=== PATIENT | female | born 1985 | race Caucasian/White ===

== ENCOUNTER → 2021-05-10 08:35 | Outpatient (BNVA) | payer OTHER, SELFPAY | PROVIDERS: PCP Nurse Practitioner Gerontology; Visit Provider Psychiatry & Neurology Neurology ==

== ENCOUNTER → 2022-05-31 09:39 | Outpatient (BNVA) | payer OTHER, SELFPAY | PROVIDERS: PCP Nurse Practitioner Gerontology; Visit Provider Psychiatry & Neurology Neurology | DX: M62.838 Other muscle spasm (principal); S24.8XXA Injury of other specified nerves of thorax, initial encounter; F41.9 Anxiety disorder, unspecified; R20.2 Paresthesia of skin ==

== ENCOUNTER 2022-12-04 09:15 | Outpatient (AMB) | payer OTHER, SELFPAY ==
--- NOTE | 2022-12-04 09:18 | MHC.OFFVIS ---
Intake Vital Signs 12/04/22 09:24 Weight 165 lb 8 oz BP 110/72 Blood Pressure Location Rt brachial Position Sitting Pulse 68 Pulse Source Pulse Oximeter Pulse Oximetry (%) 98 Oxygen Delivery Method Room Air Intake Visit Reasons: 6 mnts f/u - LVM Intake Note: F/U parastesia Allergies No Known Allergies Allergy (Verified 12/04/22 09:18) Medication List - Last Reconciled 12/04/22 by Denisa Villarreal MD citalopram 20 mg PO DAILY magnesium oxide 400 mg PO DAILY modafinil 200 mg PO BID norethindrone (contraceptive) 0.35 mg PO DAILY PNV no.170-iron fum-folic acid 27 mg iron- 1 mg 1 tab PO DAILY HPI HPI Comments History of Present Illness Details 37-year-old female with history of right shoulder pain anxiety and skin paresthesia comes for follow-up. she had her son 6 weeks ago- uncomplicated delivery had C section.she wants to get back to PT for her right thoracic nerve palsy . She is on Celexa 20 mg once a day . She is less anxious now. She also has a diagnosis of narcolepsy and is followed up for a doctor's Dr. Cortez at in [place]. [facility] Medical History Muscle spasm Injury of long thoracic nerve Anxiety Narcolepsy delivery delivered Surgical History Status post Family History Maternal Aunt Cancer Mother Cancer Social History Alcohol intake: current Alcohol intake frequency: holidays/special occasions only Patient Tobacco Use Status: Never used Tobacco Physical Exam Vital Signs: Last Vital Signs Pulse 68 12/04/22 09:24 BP 110/72 12/04/22 09:24 Pulse Ox 98 12/04/22 09:24 Oxygen Delivery Method Room Air 12/04/22 09:24 Const General: cooperative, healthy appearing, comfortable, no acute distress and well developed Nutritional Appearance: average body habitus Orientation/consciousness: patient oriented x3 Limitations: no limitations HEENT Head: Yes normal to inspection, Yes normocephalic and Yes atraumatic Neuro General: patient oriented x3, gait normal, tone normal, moves all extremities, No no focal motor deficits and CN's II-XI intact bilaterally Psych Appearance: grossly normal Speech and movement: Normal speech and movement present Affect: normal affect Assessment & Plan Assessment & Plan (1) Muscle spasm: Code(s): M62.838 - Other muscle spasm (2) Injury of long thoracic nerve: Code(s): S24.8XXA - Injury of other specified nerves of thorax, initial encounter (3) Anxiety: Code(s): F41.9 - Anxiety disorder, unspecified (4) Bilateral leg paresthesia: Code(s): R20.2 - Paresthesia of skin Plan citalopram 20mg qd F/u PT Orders: Orders PT Evaluation and Treatment Today S24.8XXA - Injury of other specified nerves of thorax, initial encounter Coding Level of Care Code Est Pt Level 4 (63256) Diagnoses Muscle spasm M62.838 Injury of long thoracic nerve S24.8XXA Anxiety F41.9 Bilateral leg paresthesia R20.2
[2022-12-04 09:24] VITALS: BP 110/72; PULSE 68; O2SAT 98
== END 2022-12-04 09:35 | disposition home or self-care (01) ==
PROVIDERS: Visit Provider Psychiatry & Neurology Neurology
DX: M62.838 Other muscle spasm (principal); S24.8XXA Injury of other specified nerves of thorax, initial encounter; F41.9 Anxiety disorder, unspecified; R20.2 Paresthesia of skin
CPT/HCPCS: 99214

== ENCOUNTER → 2022-12-04 09:15 | Outpatient (BNVA) | payer OTHER, SELFPAY | PROVIDERS: Visit Provider Psychiatry & Neurology Neurology | DX: M62.838 Other muscle spasm (principal); S24.8XXA Injury of other specified nerves of thorax, initial encounter; F41.9 Anxiety disorder, unspecified; R20.2 Paresthesia of skin ==

== ENCOUNTER 2023-06-14 15:09 | Outpatient (AMB) | payer OTHER, SELFPAY ==
[2023-06-14 15:19] VITALS: BP 110/70; PULSE 70; RESP 16; O2SAT 96; BMI 21.3
--- NOTE | 2023-06-14 15:19 | A.OFFVIS_ITS ---
Intake Vital Signs 06/14/23 15:19 Height 6 ft 1 in Weight 161 lb 4 oz BMI 21.3 BP 110/70 Blood Pressure Location Rt brachial Position Sitting Respiration 16 Pulse 70 Pulse Source Pulse Oximeter Pulse Oximetry (%) 96 Oxygen Delivery Method Room Air Intake Visit Reasons: 6 mnts f/u appt-LVM Allergies No Known Allergies Allergy (Verified 06/14/23 15:22) HPI HPI Comments History of Present Illness Details 38-year-old female with history of right shoulder pain anxiety and skin paresthesia comes for follow-up. She had her in October, uncomplicated delivery had C section. Pt back to PT for her right thoracic nerve palsy, and does PT once a week and see chiropractor every other week. Right shoulder pain and skin parethesia has improved, just gets some numbness when she stretches her arm. She is on Celexa 20 mg once a day. She is less anxious, and wants to decrease the celexa dosage. She also has a diagnosis of narcolepsy and is followed up for a doctor's Dr. Cortez at in [place]. [facility] Medical History Muscle spasm Injury of long thoracic nerve Anxiety Narcolepsy delivery delivered Surgical History Status post Family History Maternal Aunt Cancer Mother Cancer Social History Alcohol intake: current Alcohol intake frequency: holidays/special occasions only Patient Tobacco Use Status: Never used Tobacco Review of Systems Const All systems reviewed & are unremarkable except as noted in HPI and below Physical Exam Vital Signs: Last Vital Signs Pulse 70 06/14/23 15:19 Resp 16 06/14/23 15:19 BP 110/70 06/14/23 15:19 Pulse Ox 96 06/14/23 15:19 Oxygen Delivery Method Room Air 06/14/23 15:19 BMI result Body Mass Index 21.3 Const General: cooperative, healthy appearing, comfortable, no acute distress and well developed Nutritional Appearance: average body habitus Orientation/consciousness: patient oriented x3 Limitations: no limitations HEENT Head: Yes normal to inspection, Yes normocephalic and Yes atraumatic Neuro General: patient oriented x3, gait normal, tone normal, moves all extremities, No no focal motor deficits and CN's II-XI intact bilaterally Psych Appearance: grossly normal Speech and movement: Normal speech and movement present Affect: normal affect Assessment & Plan Assessment & Plan (1) Muscle spasm: Code(s): M62.838 - Other muscle spasm (2) Injury of long thoracic nerve: Code(s): S24.8XXA - Injury of other specified nerves of thorax, initial encounter (3) Anxiety: Code(s): F41.9 - Anxiety disorder, unspecified (4) Bilateral leg paresthesia: Code(s): R20.2 - Paresthesia of skin Plan Advised patient to reduce citalopram 10 mg daily. Monitor her mood. Continue to F/u with PT. Coding Level of Care Code Est Pt Level 3 (26863) Diagnoses Muscle spasm M62.838 Injury of long thoracic nerve S24.8XXA Anxiety F41.9 Bilateral leg paresthesia R20.2
== END 2023-06-14 15:32 | disposition home or self-care (01) ==
PROVIDERS: PCP Internal Medicine; Visit Provider Nurse Practitioner Family
DX: M62.838 Other muscle spasm (principal); S24.8XXA Injury of other specified nerves of thorax, initial encounter; F41.9 Anxiety disorder, unspecified; R20.2 Paresthesia of skin
CPT/HCPCS: 99213

== ENCOUNTER → 2023-06-14 15:09 | Outpatient (BNVA) | payer OTHER, SELFPAY | PROVIDERS: PCP Internal Medicine; Visit Provider Psychiatry & Neurology Neurology ==

== ENCOUNTER 2023-12-16 07:39 | Outpatient (AMB) | payer OTHER, SELFPAY ==
[2023-12-16 07:41] VITALS: BP 108/62; PULSE 87; RESP 16; O2SAT 97; BMI 20.8
--- NOTE | 2023-12-16 07:41 | MHC.OFFVIS ---
Vital Signs 12/16/23 07:41 Height 6 ft 1 in Weight 157 lb 8 oz BMI 20.8 BP 108/62 Blood Pressure Location Rt brachial Position Sitting Respiration 16 Pulse 87 Pulse Source Pulse Oximeter Pulse Oximetry (%) 97 Oxygen Delivery Method Room Air Intake Visit Reasons: 6 mo f/u Intake Note: Pt presents for a 6 month follow up for shoulder pain and paresthesia of the skin. [employer] Required: No Allergies No Known Allergies Allergy (Verified 12/16/23 07:41) Medication List - Last Reconciled 12/16/23 by Denisa Villarreal MD citalopram 20 mg PO DAILY magnesium oxide 400 mg PO DAILY modafinil 200 mg PO BID norethindrone (contraceptive) 0.35 mg PO DAILY pitolisant (Wakix) 17.8 mg PO DAILY HPI Comments Details: 38-year-old female with history of right shoulder pain anxiety and skin paresthesia comes for follow-up. Pt was helping her but it was stopped as she did not show improvement in September 2023 . she restarted 3 weeks ago . when she was not in PT her headaches and her left shoulder weakness worsened.she used to see a chiropractor for her neck which used to help . she is planning to restart. She had her baby in October 2022 uncomplicated delivery had C section. Right shoulder pain and skin parethesia has improved, just gets some numbness when she stretches her arm. She is on Celexa 10 mg once a day. She is less anxious, and wants to decrease the celexa dosage. She also has a diagnosis of narcolepsy and is followed up for a doctor's Dr. Cortez at in [place].she was recently started on wakix along with provigil. [facility] Medical History Muscle spasm Injury of long thoracic nerve Anxiety Narcolepsy delivery delivered Surgical History Status post Family History Maternal Aunt Cancer Mother Cancer Social History Alcohol intake: current Alcohol intake frequency: holidays/special occasions only Patient Tobacco Use Status: Never used Tobacco Physical Exam Vital Signs: Last Vital Signs Pulse 87 12/16/23 07:41 Resp 16 12/16/23 07:41 BP 108/62 12/16/23 07:41 Pulse Ox 97 12/16/23 07:41 Oxygen Delivery Method Room Air 12/16/23 07:41 BMI result Body Mass Index 20.8 Const General: cooperative, healthy appearing, comfortable, no acute distress and well developed Nutritional Appearance: average body habitus Orientation/consciousness: patient oriented x3 Limitations: no limitations HEENT Head: Yes normal to inspection, Yes normocephalic and Yes atraumatic Neuro Other: ,ild weakness of left arm abduction mild winging of scapula on the left tightness and tenderness in left trapezius General: patient oriented x3, gait normal, tone normal, moves all extremities and CN's II-XI intact bilaterally Psych Appearance: grossly normal Speech and movement: Normal speech and movement present Affect: normal affect Assessment & Plan Assessment & Plan (1) Muscle spasm: Code(s): M62.838 - Other muscle spasm Category: Medical (2) Injury of long thoracic nerve: Code(s): S24.8XXA - Injury of other specified nerves of thorax, initial encounter Category: Medical (3) Anxiety: Code(s): F41.9 - Anxiety disorder, unspecified Category: Medical (4) Bilateral leg paresthesia: Code(s): R20.2 - Paresthesia of skin Category: Medical Plan Continue citalopram 10 mg daily. Monitor her mood. Continue to F/u with PT. Magneisum 400mg qhs I will trial her on baclofen 10 mg 1/2 tabs as needed bid Medications: New baclofen 5 mg (1/2 x 10 mg) PO BID PRN 60 tabs 0RF muscle spasm Changed From citalopram 20 mg PO DAILY 90 tabs 2RF To citalopram 10 mg (1/2 x 20 mg) PO DAILY 90 tabs 2RF Coding Level of Care Code Est Pt Level 4 (46533) Complex EM visit Add On G2211 Diagnoses Muscle spasm M62.838 Injury of long thoracic nerve S24.8XXA Anxiety F41.9 Bilateral leg paresthesia R20.2
== END 2023-12-16 08:13 | disposition home or self-care (01) ==
PROVIDERS: PCP Internal Medicine; Visit Provider Psychiatry & Neurology Neurology
DX: M62.838 Other muscle spasm (principal); S24.8XXA Injury of other specified nerves of thorax, initial encounter; F41.9 Anxiety disorder, unspecified; R20.2 Paresthesia of skin
CPT/HCPCS: 99214

== ENCOUNTER → 2023-12-16 07:39 | Outpatient (BNVA) | payer OTHER, SELFPAY | PROVIDERS: PCP Internal Medicine; Visit Provider Psychiatry & Neurology Neurology ==